=== PATIENT | male | born 1975 | race African-American/Black ===

== ENCOUNTER 2017-01-14 21:45 | Emergency (ER) | payer OTHER, BC ==
--- NOTE | ~2017-01-14 | CT2 ---
[facility] A Service of [facility] RADIOLOGY TEXT RESULTS PATIENT: FERNANDA RUEDA LOCATION: [facility] : 73 UNIT #: [id number] AGE: [address]: Eliceo Alamo MD SEX: M ORDER DR: [id number] [address] [address] [id number] MR#: [id number] #: [id number] NAME: FERNANDA RUEDA. : 1975 SEX: M STUDY DATE/TIME: 01/14/2017 23:57 UNIT: [facility] ROOM: STUDY DESCRIPTION: CT Abd and Pelv W Cont Attending Physician: Eliceo Alamo M.D. Ordering Physician: Eliceo Alamo M.D. Primary Care Physician: Primary Care Physician No MEDICAL IMAGING REPORT This report is preliminary unless electronic signature is present EXAM CT abdomen and pelvis with contrast INDICATION Right lower quadrant abdominal pain and burning today. PROCEDURE Contrast-enhanced CT of the abdomen and pelvis. This CT exam was performed with one or more of the following radiation dose reduction techniques: automatic exposure control, adjustment of mA and/or kV according to patient size, and iterative reconstruction. COMPARISON None FINDINGS ABDOMEN WITH CONTRAST: Included lung bases clear. Liver unremarkable. There are a few splenules in the left upper quadrant. The kidneys, adrenal glands, pancreas, gallbladder are unremarkable. Bowel loops are nondilated. The appendix is normal. No evidence for inguinal hernia. IVC filter in place. PELVIS WITH CONTRAST: No pelvic mass or fluid. No aggressive appearing bone lesion. IMPRESSION 1. No acute findings. 2. Appendix is normal. 3. No evidence for inguinal hernia. Dictated by... [facility] Service [facility] RADIOLOGY TEXT RESULTS PATIENT: FERNANDA RUEDA LOCATION: [facility] : 73 UNIT #: [id number] AGE: [address]: Eliceo Alamo MD SEX: M ORDER DR: Carlos E. Zeke, M.D. THIS IS AN ELECTRONICALLY VERIFIED REPORT Carlos Alanis M.D. at 01/15/2017 10:27 PM Armani TD: 01/15/2017 08:18 JOB #: [id number] MEDICAL IMAGING REPORT Page 1 of 1 COPY
[~2017-01-14 21:45] MED LIST: AUGMENTIN875 MG PO; BACTROBAN22 GM TP; BENADRYL25 M3 PO; DICLOFENAC PO; HYDROCODONE/APA1 T16 PO; KEFLEX PO; KEFLEX500 MG PO; MEDROL DOSEPAK4 MG PO; NO MEDICATIONS; PREDNISONE PO; ROBAXIN500 MG PO; ULTRAM PO; ZITHROMAX PO
[2017-01-14 22:52] LABS: URINE SOURCE CLEAN CATCH
[2017-01-14 22:54] LABS: BASOPHIL# 0.1 X10e3 (0-0.3); DIFF IND NO; EOSINOPHIL% 0.6 % (0.0-7.0); HEMATOCRIT 43.1 % (38.0-50.0); HEMOGLOBIN 14.1 gm/dL (13.0-16.0); LYMPHOCYTE# 2.2 X10e3 (1.0-3.5); LYMPHOCYTE% 32.7 % (17.0-45.0); MEAN CELL VOLUME 88.7 FL (83-96); MEAN CORPUSCULAR HGB CONC 32.7 g/dL (30-36); MEAN PLATELET VOLUME 7.2 FL (6.5-11.5); MONOCYTE% 14.2 % (3.0-12.0); NEUTROPHIL# 3.5 X10e3 (1.5-7.1); NEUTROPHIL% 51.5 % (40-75); PLATELET COUNT 330 X10e3 (140-420); RED BLOOD COUNT 4.85 X10e (3.90-5.60); WHITE BLOOD COUNT 6.9 X10e3 (4.0-10.5)
[2017-01-14 22:55] LABS: URINE APPEARANCE CLEAR; URINE BILIRUBIN NEG (NEG); URINE BLOOD NEG (NEG); URINE COLOR YELLOW; URINE GLUCOSE NEG (NEG); URINE KETONE NEG (NEG); URINE LEUKOCYTE ESTERASE NEG (NEG); URINE NITRATE NEG (NEG); URINE PH 6.5 (5-8); URINE PROTEIN NEG (NEG); URINE SPECIFIC GRAVITY 1.012 (1.003-1.035)
[2017-01-14 22:58] LABS: CULTURE INDICATED? NO
[2017-01-14 23:19] LABS: BUN/CREATININE RATIO 12.3; CREATININE SERUM 1.3 mg/dL (0.6-1.4); POTASSIUM 3.3 mmol/L (3.5-5.1)
== END 2017-01-15 00:45 | disposition home or self-care (01) ==
LOC: CED 21:45
PROVIDERS: Emergency Medicine
DX: S39.011A Strain of muscle, fascia and tendon of abdomen, initial encounter (principal); Z79.899 Other long term (current) drug therapy; X58.XXXA Exposure to other specified factors, initial encounter; Y92.9 Unspecified place or not applicable
CPT/HCPCS: 36415; 74177; 80048; 81003; 85025; 96374; 96375; 99284; J2270; J2405; Q9967